=== PATIENT | male | born 1930 | race Caucasian/White ===

== ENCOUNTER 2017-02-26 21:58 | Emergency (ER) | payer OTHER ==
[~2017-02-26] VITALS: Ht 172.7 cm; Wt 91.3 kg
[~2017-02-26 21:58] MED LIST: HYTRIN2 MG PO; METOPROLOL TART25 MG PO; SIMVASTATIN20 MG PO; WARFARIN SODIUM5 MG PO
[2017-02-26 22:41] LABS: HEMATOCRIT 44.8 % (38.0-50.0); MCH 29.9 PG (29.0-34.0); MCHC 32.1 G/DL (30.0-36.0); MCV 92.9 FL (86-99); MEAN PLAT.VOLUME 9.9 uM^3 (9.0-12.4); PLATELET COUNT 207 K/uL (156-360); RBC DIS.WIDTH-CV 14.7 % (11.8-14.6); RBC DIS.WIDTH-SD 50.8 % (39-53); RED BLOOD COUNT 4.82 M/uL (4.00-5.50)
[2017-02-26 22:44] LABS: WHITE BLOOD COUNT 10.9 K/uL (4.1-10.2)
[2017-02-26 22:54] LABS: CHLORIDE 103 mEq/L (99-109); POTASSIUM 4.9 mEq/L (3.7-5.4); SODIUM 138 mEq/L (136-147)
[2017-02-26 22:56] LABS: GLUCOSE 120 mg/dL (70-99)
[2017-02-26 22:57] LABS: ANION GAP 10 MEQ/L (2-14)
[2017-02-26 22:58] LABS: TOTAL BILIRUBIN 0.8 mg/dL (0.0-1.0)
[2017-02-26 22:59] LABS: ALKALINE PHOSPHATASE 67 IU/L (3-129)
[2017-02-26 23:00] LABS: GFR ESTIMATE (CALCULATED) > 59 mL/min/
[2017-02-26 23:01] LABS: UREA NITROGEN (BUN) 17 mg/dL (9-23)
[2017-02-26 23:03] LABS: LIPASE 16 U/L (1.0-51.0)
[2017-02-26 23:28] LABS: ADD MIUA? YES; BILIRUBIN NEGATIVE; BLOOD LARGE; COLOR YELLOW ((YELLOW)); GLUCOSE (STRIP) NEGATIVE; KETONES NEGATIVE; LEUKOCYTES NEGATIVE; NITRITE NEGATIVE; PROTEIN (STRIP) 30; SPECIFIC GRAVITY 1.015 (1.000-1.030); UROBILINOGEN 0.2 MG/DL (0.2-1.0)
[2017-02-26 23:36] LABS: BACTERIA NONE SEEN /HPF; EPITHELIAL CELLS NONE SEEN /HPF; MUCUS TRACE /LPF; RED BLOOD CELLS TNTC /HPF (0-5); UCUL ADDED? NO; WHITE BLOOD CELLS 0-5 /HPF (0-5)
[2017-02-27 00:05] LABS: TROP-I INTERPRETATION NEGATIVE; TROPONIN-I < 0.01 ng/mL (0.0-0.30)
[2017-02-27] MEDS ORDERED: PERCOCET 5/31 TABLET PO (01:07)
[2017-02-27] MEDS ORDERED: ZOFRAN4 MG PO (01:07)
[2017-02-27] MEDS ORDERED: TORADOL10 MG PO (01:07)
[2017-02-27 01:29] VITALS: BP 145/89
[2017-03-04] MEDS ORDERED: PRAVASTATIN SOD40 MG PO (16:14)
[2017-03-04] MEDS ORDERED: TAMSULOSIN HCL0.4 MG PO (16:14)
[2017-03-04] MEDS ORDERED: METOPROLOL SUCC25 MG PO (16:15)
== END 2017-02-27 01:38 | disposition home or self-care (01) ==
LOC: EME 21:58
PROVIDERS: Emergency Medicine
DX: N20.1 Calculus of ureter (principal); R11.2 Nausea with vomiting, unspecified; E78.5 Hyperlipidemia, unspecified; N40.0 Benign prostatic hyperplasia without lower urinary tract symptoms; Z96.653 Presence of artificial knee joint, bilateral
CPT/HCPCS: 74177; 80053; 81003; 83605; 83690; 84484; 85027; 99281; 99285; J1885; J2270; J2405

== ENCOUNTER 2017-03-06 08:52 | Day surgery (SDC) | payer OTHER ==
[~2017-03-06] VITALS: Ht 170.2 cm; Wt 93.0 kg
[~2017-03-06 08:52] MED LIST changes: +METOPROLOL SUCC25 MG PO; +PERCOCET 5/31 TABLET PO; +PRAVASTATIN SOD40 MG PO; +TAMSULOSIN HCL0.4 MG PO; +TORADOL10 MG PO; +ZOFRAN4 MG PO
[2017-03-06 09:32] VITALS: BP 161/79
[2017-03-06 10:53] LABS: INTER. NORMALIZED RATIO 1.5; PROTHROMBIN TIME 15.8 (9.2-11.2)
[2017-03-06 12:21] VITALS: BP 134/77
[2017-03-06 13:20] VITALS: BP 145/90
[2017-03-06 14:17] VITALS: BP 151/85
== END 2017-03-06 14:22 | disposition home or self-care (01) ==
LOC: SDC 08:52
PROVIDERS: Urology
PROC: 0T768DZ Dilation of Right Ureter with Intraluminal Device, Via Natural or Artificial Opening Endoscopic (ICD-10-PCS; principal; 2017-03-06)
DX: N20.2 Calculus of kidney with calculus of ureter (principal); I48.91 Unspecified atrial fibrillation; Z79.01 Long term (current) use of anticoagulants; E78.5 Hyperlipidemia, unspecified
CPT/HCPCS: 74420; 85610; C1758; C1876; J0690; J1100; J1885; J2405; J3010; J7050

== ENCOUNTER 2017-05-31 11:00 | Day surgery (SDC) | payer OTHER ==
[~2017-05-31] VITALS: Ht 172.7 cm; Wt 90.0 kg
[~2017-05-31 11:00] MED LIST changes: +ALEVE220 M2 PO; +BONINE25 MG PO; +COUMADIN1 MG PO; +LOTRISONE15 GM TP; +PROAIR HFA8.5 GM IH; +RESTASIS MULTI5.5 ML BOTH EYES
[2017-05-31] MEDS ORDERED: WARFARIN SODIUM5 MG PO (11:38)
[2017-05-31 11:43] VITALS: BP 165/86
[2017-05-31 11:43] LABS: INTER. NORMALIZED RATIO 1.2; PROTHROMBIN TIME 13.7 SEC (10.2-12.9)
[2017-05-31 16:51] VITALS: BP 171/99
[2017-05-31 17:23] VITALS: BP 168/86
== END 2017-05-31 17:40 | disposition home or self-care (01) ==
LOC: SDC 11:00
PROVIDERS: Urology
DX: N20.2 Calculus of kidney with calculus of ureter (principal); N28.1 Cyst of kidney, acquired; N40.1 Benign prostatic hyperplasia with lower urinary tract symptoms; R33.9 Retention of urine, unspecified; R39.15 Urgency of urination; Z87.442 Personal history of urinary calculi; I48.91 Unspecified atrial fibrillation; I48.92 Unspecified atrial flutter; E78.00 Pure hypercholesterolemia, unspecified; M19.90 Unspecified osteoarthritis, unspecified site; Z79.01 Long term (current) use of anticoagulants; Z82.49 Family history of ischemic heart disease and other diseases of the circulatory system
CPT/HCPCS: 74420; 82365 90; 85610; C1758; C1876; C1894; J0131; J0690; J1580; J1885; J2250; J2405; J3010; J7120